=== PATIENT | female | born 1965 | race Caucasian/White ===

== ENCOUNTER 2021-07-07 00:53 | Emergency (ER) | payer MEDICAID ==
[~2021-07-07] VITALS: Ht 157.5 cm; Wt 76.0 kg
[2021-07-07] MEDS ORDERED: IBUPROFEN 600MG TABLET PO ONE (03:00)
[2021-07-07 03:10] LABS: BASOPHILS % 0.4 % (0.0-2.0); EOSINOPHILS % 2.6 % (0.0-5.0); HEMATOCRIT. 40.7 % (36.0-48.0); HEMOGLOBIN. 13.9 g/dL (12.0-16.0); LYMPHOCYTES % 48.4 % (20.0-50.0); MEAN CORPUSCULAR HEMOGLOBIN 31.1 pg (28.0-32.0); MEAN CORPUSCULAR VOLUME 91.3 fL (81.0-99.0); MONOCYTES % 8.5 % (2.0-8.0); NEUTROPHILS % 40.1 % (40.0-76.0); PLATELET 318 x1000/uL (130-400); RED BLOOD CELL COUNT 4.46 mill/uL (4.2-5.4); RED CELL DISTRIBUTION WIDTH 13.5 % (11.6-14.6)
[2021-07-07 03:19] LABS: CHLORIDE 107 mEq/L (98-107)
[2021-07-07 03:22] VITALS: BP 145/71
[2021-07-07] MEDS ORDERED: LIDO1ADH5 TP (04:03)
[2021-07-07] MEDS ORDERED: IBUP-2029 MT (04:03)
== END 2021-07-07 04:15 | disposition home or self-care (01) ==
LOC: ER 00:53
DX: R07.89 Other chest pain (principal); I10 Essential (primary) hypertension
CPT/HCPCS: 36415; 71045; 80053; 83880; 84484; 85025; 93005; 99285